=== PATIENT | female | born 1990 | race Caucasian/White ===

== ENCOUNTER 2017-03-11 11:14 | Emergency (ER) | payer MEDICAID ==
[2017-03-11 11:54] VITALS: BMI 30.4
[2017-03-11] MEDS ORDERED: Alum-Mag Hydrox-Simethicone Susp (30 mL) PO STA (11:54)
[2017-03-11 12:08] VITALS: PULSE 63; RESP 18; TEMP 97.9
[2017-03-11 12:19] LABS: BASO % 0.7 % (0.0-2.0); HEMATOCRIT 36.4 % (34.0-47.0); LYMPH # 1.8 K/uL (1.0-4.3); LYMPH % 51.9 % (20.0-40.0); MEAN CELL VOLUME 81.2 fl (81.0-99.0); MEAN CORPUSCULAR HEMOGLOBIN 26.6 pg (27.0-31.0); MEAN CORPUSCULAR HGB CONC 32.7 g/dL (33.0-37.0); MEAN PLATELET VOLUME 7.7 fl (7.2-11.7); MONO # 0.2 K/uL (0.0-0.8); MONO % 6.2 % (0.0-10.0); NEUT # 1.4 K/uL (1.8-7.0); NEUT % 40.2 % (50.0-75.0); NRBC % 0.2 % (0.0-0.0); RED CELL DISTRIBUTION WIDTH 13.4 % (11.5-14.5); WHITE BLOOD COUNT 3.4 K/uL (4.8-10.8)
[2017-03-11] MEDS ORDERED: Alum-Mag Hydrox-Simethicone Susp (30 mL) ONE (12:21)
--- NOTE | 2017-03-11 12:44 | ED PDOC ---
HPI: Abdomen Time Seen by Provider: 03/11/17 11:39 Chief Complaint (Nursing): Abdominal Pain Chief Complaint (Provider): Abdominal pain History Per: Patient History/Exam Limitations: no limitations Onset/Duration Of Symptoms: Days (2) Location Of Pain/Discomfort: RUQ, Epigastric Associated Symptoms: denies: Fever, Vomiting, Diarrhea Additional Complaint(s): Patient is a 26 y/o female with no significant past medical history presenting to the emergency department for constant abdominal pain x2 days located in the epigastric area and radiating to the right upper quadrant and back with associated nausea. Denies vomiting, diarrhea, fever, and other complaints. PCP: none provided. Past Medical History Reviewed: Historical Data, Nursing Documentation, Vital Signs Vital Signs: Last Vital Signs Temp 97.9 F 03/11/17 12:05 Pulse 63 03/11/17 12:05 Resp 18 03/11/17 12:05 BP 119/75 03/11/17 12:37 Pulse Ox 97 03/11/17 16:38 - Medical History PMH: Migraine Denies: Chronic Kidney Disease - Surgical History Other surgeries: Ectopic - Family History Family History: States: Unknown Family Hx - Social History Current smoker - smoking cessation education provided: No Ex-Smoker (has not smoked in the last 12 months): No Alcohol: None Drugs: Denies - Home Medications Home Medications: Ambulatory Orders Medication Instructions Recorded Famotidine [Pepcid] 20 mg PO DAILY #14 tab 03/11/17 Omeprazole 20 mg PO DAILY #30 capsule. 03/11/17 - Allergies Allergies/Adverse Reactions: Allergies Allergy/AdvReac Type Severity Reaction Status Date / Time No Known Allergies Allergy Verified 03/11/17 12:39 Review of Systems ROS Statement: Except As Marked, All Systems Reviewed And Found Negative Constitutional: Negative for: Fever Gastrointestinal: Positive for: Abdominal Pain (constant, x2 days, epigastric radiating to right upper quadrant and back). Negative for: Vomiting, Diarrhea Physical Exam - Reviewed Nursing Documentation Reviewed: Yes Vital Signs Reviewed: Yes - Physical Exam Appears: Positive for: Non-toxic, No Acute Distress Head Exam: Positive for: ATRAUMATIC, NORMAL INSPECTION, NORMOCEPHALIC Skin: Positive for: Normal Color, Warm, Dry Eye Exam: Positive for: Normal appearance Neck: Positive for: Normal, Painless ROM, Supple Cardiovascular/Chest: Positive for: Regular Rate, Rhythm. Negative for: Murmur Respiratory: Positive for: Normal Breath Sounds. Negative for: Accessory Muscle Use, Respiratory Distress Gastrointestinal/Abdominal: Positive for: Normal Exam, Soft, Tenderness ( epigastric). Negative for: Distended, Guarding, Rebound, Other (Cabrera's point) Extremity: Positive for: Normal ROM. Negative for: Pedal Edema Neurologic/Psych: Positive for: Alert, Oriented (x3) - Laboratory Results Result Diagrams: 03/11/17 12:14 03/11/17 12:14 - ECG O2 Sat by Pulse Oximetry: 97 (RA) Pulse Ox Interpretation: Normal - Progress Re-evaluation Time: 16:30 Condition: Re-examined, Improved Medical Decision Making Medical Decision Making: Time: 12:08 Initial impression: Abdominal pain Differential diagnoses include but not limited to gastritis, cholecystectomy, and pancreatitis. Rule out and urinary tract infection. Initial plan: Labs ED Urine Dipstick ED Urine Maalox 30 ml PO Pepcid 20 mg IVP IV Insertion Reevaluation 16:16 Abdominal ultrasound reviewed. Findings noted as follows: LIVER: Measures 16.1 cm in length. Patent portal vein. Portal venous flow: Hepatopetal. Unremarkeable echogenicity of the liver parenchyma. Well- circumscribed echogenic mass right hepatic lobe 1.5 x 2 cm consistent with hemangioma. GALLBLADDER: Unremarkable. No gallstones. COMMON BILE DUCT: Measures 2.3 mm. No stones. No dilatation. PANCREAS: Unremarkable as visualized. No mass. No ductal dilatation. RIGHT KIDNEY: Measures 6.3 x 10.7 cm in length. Normal echogenicity. No calculus, mass, or hydronephrosis. AORTA: No aneurysmal dilatation. IVC: Unremarkable. OTHER FINDINGS: None . IMPRESSION: No acute findings related to/accounting for the clinical presentation. Additional benign and/or incidental findings described above. Scribe Attestation: Documented by Layla High, acting as a scribe for Kailyn Coker MD. Provider Scribe Attestation: All medical record entries made by the Scribe were at my direction and personally dictated by me. I have reviewed the chart and agree that the record accurately reflects my personal performance of the history, physical exam, medical decision making, and the department course for this patient. I have also personally directed, reviewed, and agree with the discharge instructions and disposition. Disposition - Clinical Impression Clinical Impression: Abdominal pain - Patient ED Disposition Is Patient to be Admitted: No Doctor Will See Patient In The: Office Counseled Patient/Family Regarding: Studies Performed, Diagnosis, Need For Followup - Disposition Referrals: [facility] [Outside] Disposition: Routine/Home Disposition Time: 16:37 Condition: GOOD Additional Instructions: Return for worsening. Follow up with your PCP in 2-3 days. Take your medications as instructed. Prescriptions: Famotidine [Pepcid] 20 mg PO DAILY #14 tab Omeprazole 20 mg PO DAILY #30 capsule. Instructions: Gastritis (ED)
[2017-03-11 12:53] LABS: BLOOD UREA NITROGEN 8 mg/dl (7-17); CALCIUM 9.1 mg/dL (8.4-10.2); CARBON DIOXIDE 25 mmol/L (22-30); CHLORIDE 105 mmol/L (98-107); GFR AFRICAN-AMERICAN > 60; GLUCOSE,RANDOM 84 mg/dL (65-105); POTASSIUM 4.2 MMOL/L (3.6-5.0); SODIUM 143 mmol/l (132-148)
[2017-03-11 12:54] LABS: ALB/GLOB RATIO 1.4 (1.0-2.1); ALKALINE PHOSPHATASE 71 U/L (38-126); ALT/SGPT 52 U/L (9-52); AST/SGOT 40 U/L (14-36); BILIRUBIN,TOTAL 0.4 mg/dl (0.2-1.3); LIPASE 59 U/L (23-300); TOTAL PROTEIN 7.8 G/DL (6.3-8.2)
--- NOTE | 2017-03-11 16:17 | US ---
HISTORY: RUQ pain COMPARISON: None. TECHNIQUE: Sonographic evaluation of the right upper quadrant of the abdomen. FINDINGS: LIVER: Measures 16.1 cm in length. Patent portal vein. Portal venous flow: Hepatopetal. Unremarkeable echogenicity of the liver parenchyma. Well-circumscribed echogenic mass right hepatic lobe 1.5 x 2 cm consistent with hemangioma. GALLBLADDER: Unremarkable. No gallstones. COMMON BILE DUCT: Measures 2.3 mm. No stones. No dilatation. PANCREAS: Unremarkable as visualized. No mass. No ductal dilatation. RIGHT KIDNEY: Measures 6.3 x 10.7 cm in length. Normal echogenicity. No calculus, mass, or hydronephrosis. AORTA: No aneurysmal dilatation. IVC: Unremarkable. OTHER FINDINGS: None . IMPRESSION: No acute findings related to/accounting for the clinical presentation. Additional benign and/or incidental findings described above.
[2017-03-11 16:50] VITALS: BP 125/68; O2SAT 99
== END 2017-03-11 16:51 | disposition home or self-care (01) ==
LOC: H.ER 11:14
DX: K29.70 Gastritis, unspecified, without bleeding (principal); D18.03 Hemangioma of intra-abdominal structures; Z90.49 Acquired absence of other specified parts of digestive tract

== ENCOUNTER 2017-03-22 08:34 | Emergency (ER) | payer MEDICAID ==
[2017-03-22 08:40] VITALS: BP 126/63; PULSE 66; RESP 16; TEMP 98.5; O2SAT 98
[2017-03-22 08:41] VITALS: BMI 31.4
[2017-03-22] MEDS ORDERED: Sodium Chloride 0.9% 1,000 ML IV STA (08:52)
--- NOTE | 2017-03-22 08:56 | ED PDOC ---
HPI: Headache Time Seen by Provider: 03/22/17 08:44 Chief Complaint (Nursing): Headache Chief Complaint (Provider): Headache History Per: Patient History/Exam Limitations: no limitations Onset/Duration Of Symptoms: Days (x3 days) Current Symptoms Are (Timing): Still Present Associated Symptoms: denies: Photophobia, Blurred Vision, Nausea Additional Complaint(s): 26 y/o female with a past medical history of migraines who presents to the emergency department with a right-sided headache x3 days. States she took Excedrin with no improvement. Also reports itching and discharge from both eyes. Patient works in [employer] without breakage of conjunctivitis. Denies photophobia, blurry vision, and nausea. PMD: Dr. Alvaro Vivas MD Past Medical History Reviewed: Historical Data, Nursing Documentation, Vital Signs Vital Signs: Last Vital Signs Temp 98.5 F 03/22/17 08:39 Pulse 66 03/22/17 08:39 Resp 16 03/22/17 08:39 BP 126/63 03/22/17 08:39 Pulse Ox 98 03/22/17 08:39 - Medical History PMH: Migraine Denies: Chronic Kidney Disease - Family History Family History: States: Unknown Family Hx - Social History Current smoker - smoking cessation education provided: No Alcohol: None Drugs: Denies - Home Medications Home Medications: Ambulatory Orders Medication Instructions Recorded Famotidine [Pepcid] 20 mg PO DAILY #14 tab 03/11/17 Omeprazole 20 mg PO DAILY #30 capsule. 03/11/17 Acetaminophen/Butalbital/Caf 1 tab PO Q8 #10 tab 03/22/17 [Fioricet] Tobramycin 0.3% [Tobramycin 5 Ml] 1 drop OP TID #1 bottle 03/22/17 - Allergies Allergies/Adverse Reactions: Allergies Allergy/AdvReac Type Severity Reaction Status Date / Time No Known Allergies Allergy Verified 03/11/17 12:39 Review of Systems ROS Statement: Except As Marked, All Systems Reviewed And Found Negative Eyes: Positive for: Other (Itching and discharge from both eyes). Negative for : Vision Change (Blurry vision or photophobia) Gastrointestinal: Negative for: Nausea Neurological: Positive for: Headache Physical Exam - Reviewed Nursing Documentation Reviewed: Yes Vital Signs Reviewed: Yes - Physical Exam Appears: Positive for: Non-toxic, No Acute Distress Head Exam: Positive for: ATRAUMATIC, NORMAL INSPECTION, NORMOCEPHALIC Skin: Positive for: Normal Color, Warm, Dry ( ) Eye Exam: Positive for: EOMI, PERRL, Conjunctival injection (Mild) Neck: Positive for: Normal, Painless ROM, Supple. Negative for: Pain On Movement Of Neck Neurologic/Psych: Positive for: Alert, Oriented (x3). Negative for: Motor/ Sensory Deficits - ECG O2 Sat by Pulse Oximetry: 98 (RA) Pulse Ox Interpretation: Normal Medical Decision Making Medical Decision Making: Time: 08:52 Initial Impression: Headache and eye pain bilaterally Initial Plan: --Toradol 30 mg IVP --Reglan 10 mg IVP --Sodium Chloride 1L IV 100 mls/hr --Zofran 4 mg IVP --Reevaluation Scribe Attestation: Documented by Heidi Carranza, acting as a scribe for Orlando Brenner MD. Provider Scribe Attestation: All medical record entries made by the Scribe were at my direction and personally dictated by me. I have reviewed the chart and agree that the record accurately reflects my personal performance of the history, physical exam, medical decision making, and the department course for this patient. I have also personally directed, reviewed, and agree with the discharge instructions and disposition. Disposition - Clinical Impression Clinical Impression: Migraine, Conjunctivitis - Patient ED Disposition Is Patient to be Admitted: No Counseled Patient/Family Regarding: Diagnosis, Need For Followup, Rx Given - Disposition Referrals: [facility] [Outside] Disposition: Routine/Home Disposition Time: 10:15 Condition: FAIR Prescriptions: Acetaminophen/Butalbital/Caf [Fioricet] 1 tab PO Q8 #10 tab Tobramycin 0.3% [Tobramycin 5 Ml] 1 drop OP TID #1 bottle Instructions: Migraine Headache (ED), Conjunctivitis (ED) Forms: [employer] (Croatian)
== END 2017-03-22 10:30 | disposition home or self-care (01) ==
LOC: H.ER 08:34
DX: G43.909 Migraine, unspecified, not intractable, without status migrainosus (principal); H10.9 Unspecified conjunctivitis
CPT/HCPCS: 81025; 96374; 96375; 99283; J1885; J2405; J2765; J7040

== ENCOUNTER 2017-08-28 09:33 | Emergency (ER) | payer MEDICAID ==
[2017-08-28 09:38] VITALS: PULSE 68; TEMP 98
[2017-08-28 09:39] VITALS: BMI 31.6
[2017-08-28 09:54] VITALS: RESP 20
--- NOTE | 2017-08-28 10:06 | ED PDOC ---
HPI: Back Additional Complaint(s): 26yo F with no PMHx c/o mid right back pain. duration x2 days, 5/10, sharp, constant, no radiation, triggered by rotating torso too much, works as [employer], denies bladder/bowel incontinence, denies numbness/tingling, not tried any meds yet. PCP: Dr. Vivas <Elma Knowles - Last Filed: 08/28/17 10:24> <Haleigh Duncan - Last Filed: 08/28/17 10:44> Time Seen by Provider: 08/28/17 09:52 Chief Complaint (Nursing): Upper Extremity Problem/Injury Past Medical History Reviewed: Historical Data, Nursing Documentation, Vital Signs Vital Signs: Last Vital Signs Temp 98 F 08/28/17 09:51 Pulse 68 08/28/17 09:51 Resp 20 08/28/17 09:51 BP 107/84 08/28/17 09:51 Pulse Ox 100 08/28/17 09:51 - Medical History PMH: No Chronic Diseases, Migraine Denies: Chronic Kidney Disease - Surgical History Surgical History: No Surg Hx - Family History Family History: States: Unknown Family Hx - Social History Current smoker - smoking cessation education provided: No Alcohol: None Drugs: Denies <Elma Knowles - Last Filed: 08/28/17 10:24> Vital Signs: Last Vital Signs Temp 98 F 08/28/17 09:51 Pulse 68 08/28/17 09:51 Resp 20 08/28/17 09:51 BP 107/84 08/28/17 09:51 Pulse Ox 100 08/28/17 10:28 <Haleigh Duncan - Last Filed: 08/28/17 10:44> - Home Medications Home Medications: Ambulatory Orders Medication Instructions Recorded Famotidine [Pepcid] 20 mg PO DAILY #14 tab 03/11/17 Omeprazole 20 mg PO DAILY #30 capsule. 03/11/17 Acetaminophen/Butalbital/Caf 1 tab PO Q8 #10 tab 03/22/17 [Fioricet] Tobramycin 0.3% [Tobramycin 5 Ml] 1 drop OP TID #1 bottle 03/22/17 - Allergies Allergies/Adverse Reactions: Allergies Allergy/AdvReac Type Severity Reaction Status Date / Time No Known Allergies Allergy Verified 08/28/17 09:50 Supervising Attending Note - Supervising Attending Note The Documented history was done by the: Physician Guidance Secretary The documented physical exam was done by the: Physician Guidance Secretary The documented procedures were done by the: Physician Guidance Secretary - Attestation: I have personally seen and examined this patient.: Yes I have fully participated in the care of the patient.: Yes I have reviewed all pertinent clinical information: Yes <Haleigh Duncan Terry - Last Filed: 08/28/17 10:44> Review of Systems ROS Statement: Except As Marked, All Systems Reviewed And Found Negative Musculoskeletal: Positive for: Back Pain <Elma Knowles - Last Filed: 08/28/17 10:24> Physical Exam - Reviewed Nursing Documentation Reviewed: Yes Vital Signs Reviewed: Yes - Physical Exam Appears: Positive for: Well, No Acute Distress Head Exam: Positive for: ATRAUMATIC, NORMAL INSPECTION Skin: Positive for: Warm, Dry Eye Exam: Positive for: Normal appearance. Negative for: Scleral icterus Neck: Positive for: Normal, Supple Cardiovascular/Chest: Positive for: Regular Rate, Rhythm. Negative for: Murmur Respiratory: Positive for: Normal Breath Sounds. Negative for: Respiratory Distress Gastrointestinal/Abdominal: Positive for: Soft. Negative for: Tenderness Back: Positive for: Other (tender along right lower thoracic paraspinal, worse with sidebending and rotation. ). Negative for: L CVA Tenderness, R CVA Tenderness, Vertebral Tenderness, Muscle Spasm Extremity: Positive for: Normal ROM. Negative for: Tenderness Neurologic/Psych: Positive for: Alert, Oriented, Other (negative straight leg). Negative for: Motor/Sensory Deficits <Elma Knowles - Last Filed: 08/28/17 10:24> - ECG O2 Sat by Pulse Oximetry: 100 <Elma - Last Filed: 08/28/17 10:24> Medical Decision Making Medical Decision Makin DDx T/S paraspinal strain/sprain, spasm unlikely motrin 600mg PO x1 reassessment 1024 back pain improved, 3/10 d/c, ibuprofen 600mg PO q6-8 hr prn for pain, pt will get OTC FU PCP <Elma Knowles - Last Filed: 08/28/17 10:24> Disposition - Disposition Disposition: Routine/Home Disposition Time: 10:26 <Elma Knowles - Last Filed: 08/28/17 10:24> <Haleigh Duncan - Last Filed: 08/28/17 10:44> - Clinical Impression Clinical Impression: Low back strain - Disposition Referrals: Talon Vivas MD [Family Provider] - Condition: IMPROVED Instructions: Lumbar Muscle Strain (DC) Forms: [employer] (Georgian)
[2017-08-28 11:01] VITALS: BP 120/70; O2SAT 98
== END 2017-08-28 11:00 | disposition home or self-care (01) ==
LOC: H.ER 09:33
DX: M54.9 Dorsalgia, unspecified (principal)